=== PATIENT | male | born 1995 | race African-American/Black ===

== ENCOUNTER 2016-09-16 01:02 | Emergency (ER) | payer OTHER ==
[2016-09-16 01:09] VITALS: BP 131/73; PULSE 61; TEMP 98; BMI 21.9
[2016-09-16] MEDS ORDERED: ONDANSETRON 4 MG/2 ML VIAL IVPUSH ONE (01:22)
--- NOTE | 2016-09-16 01:22 | PDOC ---
[id number] No Limitations - History of Present Illness Timing/Duration: 24 hours Severity: mild Associated Symptoms: reports: headaches. denies: chest pain <Carlene Villegas - Last Filed: 09/16/16 02:37> <Silviano Salazar - Last Filed: 09/23/16 06:26> - General Chief Complaint: Headache Stated Complaint: HEADACHE, VOMITING Time Seen by Provider: 09/16/16 01:06 Past History - Travel Traveled outside of the country in the last 30 days: No Close contact w/someone who was outside of country & ill: No - Past Medical History Other medical history: denies - Psycho/Social/Smoking Cessation Hx Anxiety: No Suicidal Ideation: No Smoking History: Never smoked Have you smoked in the past 12 months: No Hx Alcohol Use: No Substance Use Type: None, Marijuana <Karley Villegasui - Last Filed: 09/16/16 02:37> <Silviano Salazar - Last Filed: 09/23/16 06:26> - Past Medical History Allergies/Adverse Reactions: Allergies Allergy/AdvReac Type Severity Reaction Status Date / Time No Known Allergies Allergy Verified 09/16/16 01:08 Home Medications: Ambulatory Orders Ondansetron HCl [Zofran] 4 mg PO TID #15 tablet 09/16/16 Review of Systems - Review of Systems Able to Perform ROS?: Yes Comments:: 09/16/16 01:42 CONSTITUTIONAL: Absent: fever, chills, diaphoresis, generalized weakness, malaise, loss of appetite HEENT: Absent: rhinorrhea, nasal congestion, throat pain, throat swelling, difficulty swallowing, mouth swelling, ear pain, eye pain, visual Changes CARDIOVASCULAR: Absent: chest pain, loss of consciousness, palpitations, irregular heart rate, peripheral edema RESPIRATORY: Absent: cough, shortness of breath, dyspnea with exertion, orthopnea, wheezing, stridor, hemoptysis GASTROINTESTINAL: Absent: abdominal pain, abdominal distension, nausea, vomiting, diarrhea, constipation, melena, hematochezia GENITOURINARY: Absent: dysuria, frequency, urgency, hesitancy, hematuria, flank pain, genital pain MUSCULOSKELETAL: Absent: myalgia, arthralgia, joint swelling SKIN: Absent: rash, itching, pallor HEMATOLOGIC/IMMUNOLOGIC: Absent: easy bleeding, easy bruising, lymphadenopathy, frequent infections ENDOCRINE: Absent: unexplained weight gain, unexplained weight loss, heat intolerance, cold intolerance NEUROLOGIC: +headache Absent: focal weakness or paresthesias, dizziness, unsteady gait, seizure, mental status changes, bladder or bowel incontinence PSYCHIATRIC: Absent: anxiety, depression, suicidal or homicidal ideation, hallucinations. Is the patient limited Swazi proficient: No <Karley Villegasui - Last Filed: 09/16/16 02:37> *Physical Exam - Vital Signs Last Vital Signs Temp Pulse Resp BP Pulse Ox 98.0 F 61 18 131/73 100 09/16/16 01:04 09/16/16 01:04 09/16/16 01:04 09/16/16 01:04 09/16/16 01:04 - Physical Exam Comments: 09/16/16 01:43 GENERAL: Well developed, well nourished. Awake and alert. No acute distress. HEENT: Normocephalic, atraumatic. PERRLA, EOMI. No conjunctival pallor. Sclera are non- icteric. Moist mucous membranes. Oropharynx is clear. NECK: Supple. Full ROM. No JVD. Carotid pulses 2+ and symmetric, without bruits. No thyromegaly. No lymphadenopathy. CARDIOVASCULAR: Regular rate and rhythm. No murmurs, rubs, or gallops. Distal pulses are 2+ and symmetric. PULMONARY: No evidence of respiratory distress. Lungs clear to auscultation bilaterally. No wheezing, rales or rhonchi. ABDOMINAL: Soft. Non-tender. Non-distended. No rebound or guarding. No organomegaly. Normoactive bowel sounds. MUSCULOSKELETAL Normal range of motion at all joints. No bony deformities or tenderness. No CVA tenderness. EXTREMITIES: No cyanosis. No clubbing. No edema. No calf tenderness. SKIN: Warm and dry. Normal capillary refill. No rashes. No jaundice. NEUROLOGICAL: Alert, awake, appropriate. Cranial nerves 2-12 intact. No deficits to light touch and temperature in face, upper extremities and lower extremities. No motor deficits in the in face, upper extremities and lower extremities. Normoreflexic in the upper and lower extremities. Normal speech. Toes are down- going bilaterally. Gait is normal without ataxia. PSYCHIATRIC: Cooperative. Good eye contact. Appropriate mood and affect. <BakariCarlene - Last Filed: 09/16/16 02:37> - Vital Signs Last Vital Signs Temp Pulse Resp BP Pulse Ox 98.0 F 61 18 131/73 100 09/16/16 01:04 09/16/16 01:04 09/16/16 01:04 09/16/16 01:04 09/16/16 01:04 <Silviano Salazar - Last Filed: 09/23/16 06:26> ED Treatment Course - LABORATORY CBC & Chemistry Diagram: 09/16/16 01:18 09/16/16 01:18 <Carlene Villegas - Last Filed: 09/16/16 02:37> - LABORATORY CBC & Chemistry Diagram: 09/16/16 01:18 09/16/16 01:18 - ADDITIONAL ORDERS Additional order review: 09/16/16 01:18 RBC 4.63 MCV 93.3 MCHC 35.0 RDW 12.5 MPV 9.0 Neutrophils % 74.6 Lymphocytes % 18.9 Monocytes % 5.5 Eosinophils % 0.4 Basophils % 0.6 - Medications Given in the ED: ED Medications Discontinued Medications Generic Name Dose Route Start Last Admin Trade Name Freq PRN Reason Stop Dose Admin Sodium Chloride 1,000 mls @ 1,000 mls/hr 09/16/16 01:23 09/16/16 01:30 Normal Saline - IV 09/16/16 02:22 1,000 mls/hr ASDIR STA Administration Ondansetron HCl 4 mg 09/16/16 01:22 09/16/16 01:30 Zofran Injection IVPUSH 09/16/16 01:23 4 mg ONCE ONE Administration <Silviano Salazar - Last Filed: 09/23/16 06:26> Medical Decision Making - Medical Decision Making 09/23/16 06:26 ED Attending note: I was available, involved in the case with the mid level provider as needed and in a limited capacity. 09/23/16 06:26 <Silviano Salazar - Last Filed: 09/23/16 06:26> *DC/Admit/Observation/Transfer <Carlene Villegas - Last Filed: 09/16/16 02:37> <Silviano Salazar - Last Filed: 09/23/16 06:26> Diagnosis at time of Disposition: Nausea & vomiting Qualifiers: Vomiting type: unspecified Vomiting Intractability: non-intractable Qualified Code(s): R11.2 - Nausea with vomiting, unspecified Head ache Qualifiers: Headache type: unspecified Headache chronicity pattern: unspecified pattern Intractability: not intractable Qualified Code(s): R51 - Headache - Discharge Dispostion Disposition: HOME Condition at time of disposition: Stable - Prescriptions Prescriptions: Ondansetron HCl [Zofran] 4 mg PO TID #15 tablet - Referrals Referrals: Donaldo Epps MD [Staff Physician] - - Patient Instructions Printed Discharge Instructions: Nausea and Vomiting-Adult, DI for Headache Additional Instructions: Rest Increase fluids Tylenol/motrin as needed for pain Follow up with your physician Return to the Er for severe/persistent/worsening symptoms Progress Note - Progress Note Progress Note: 20-year-old male presents to the emergency department complaining of nausea/ vomiting 2 days without abdominal pains, chest pain, shortness of breath, fever /chills, flank pains, urinary symptoms. Patient states he had 4 episodes of vomiting over the course of 48 hours that were nonbilious/nonbloody. His last episode of vomiting was 10 hours ago. Patient states he was able to eat and drink as of 6 hours ago without recurrent symptoms. 0203hrs: Patient reports he feels much better and wishes to be discharged. <Carlene Villegas - Last Filed: 09/16/16 02:37>
[2016-09-16] MEDS ORDERED: SODIUM CHLORIDE 1,000 ML IV STA (01:23)
[2016-09-16] MEDS ORDERED: ONDANSETRON 4 MG/2 ML VIAL ONE (01:26)
[2016-09-16 01:42] LABS: BASOPHIL 0.6 % (0-2.0); EOSINOPHIL 0.4 % (0-4.5); MCH 32.7 pg (25.7-33.7); MEAN CELL VOLUME 93.3 fl (80-96); NEUTROPHILS 74.6 % (42.8-82.8); PLATELET COUNT 203 K/MM3 (134-434); RDW 12.5 % (11.9-15.9)
[2016-09-16 02:08] LABS: ALBUMIN 4.5 g/dl (3.4-5.0); ALK PHOS 82 U/L (45-117); ANION GAP 7 (8-16); CALCIUM 9.3 mg/dL (8.5-10.1); CO2 32 mmol/L (21-32); GLUCOSE,RANDOM 89 mg/dL (74-106); SGOT/AST 22 U/L (15-37); SGPT/ALT 15 U/L (12-78); TOT PROT 7.7 g/dl (6.4-8.2)
== END 2016-09-16 03:00 | disposition home or self-care (01) ==
LOC: JER 01:02
PROC: 3E033GC Introduction of Other Therapeutic Substance into Peripheral Vein, Percutaneous Approach (ICD-10-PCS; principal; 2016-09-16)
DX: R51 Headache (principal); R11.2 Nausea with vomiting, unspecified
CPT/HCPCS: 36415; 80053; 85025; 99282-25

== ENCOUNTER 2018-03-17 21:53 | Emergency (ER) | payer OTHER ==
[2018-03-17 22:18] VITALS: BP 125/63; PULSE 70; TEMP 98.8; BMI 21.6
--- NOTE | 2018-03-17 22:39 | PDOC ---
History of Present Illness - General Chief Complaint: Cold Symptoms Stated Complaint: COLD SYMPTOMS Time Seen by Provider: 03/17/18 22:32 - History of Present Illness Initial Comments: 22-year-old male presents for evaluation of subjective fever chills body aches and cough 5 days. He has no comorbidities. 03/17/18 22:38 Past History - Past Medical History Allergies/Adverse Reactions: Allergies Allergy/AdvReac Type Severity Reaction Status Date / Time No Known Allergies Allergy Verified 09/16/16 01:08 Home Medications: Ambulatory Orders NK [No Known Home Medication] 03/17/18 COPD: No - Suicide/Smoking/Psychosocial Hx Smoking History: Never smoked Have you smoked in the past 12 months: No Information on smoking cessation initiated: No Hx Alcohol Use: No Drug/Substance Use Hx: No Substance Use Type: None Review of Systems - Review of Systems Constitutional: Yes: Chills, Fever, Malaise, Weakness Respiratory: Yes: Cough All Other Systems: Reviewed and Negative *Physical Exam - Vital Signs Last Vital Signs Temp Pulse Resp BP Pulse Ox 98.8 F 70 17 125/63 100 03/17/18 22:13 03/17/18 22:13 03/17/18 22:13 03/17/18 22:13 03/17/18 22:13 - Physical Exam Comments: HEAD: NC/AT EYES: Conjuntiva clear Ears: Canals and TM's normal NOSE: No d/c THROAT: Moist mucous membrances, oral pharanx clear, uvula midline NECK: Supple without adenopathy CARDIAC: S1 S2 LUNGS: CTA Full and Equal breath sounds ABDOMEN: Soft NT ND MS: Full ROM in all joints without edema NEUROLOGIC: No gross sensory or motor deficits, NVID SKIN: Normal color and temperature no lesions or rashes 03/17/18 22:38 Medical Decision Making - Medical Decision Making 03/17/18 22:39 Flu swab sent. *DC/Admit/Observation/Transfer Diagnosis at time of Disposition: Viral syndrome - Referrals - Patient Instructions - Post Discharge Activity
--- NOTE | 2018-03-17 23:08 | PDOC ---
*Physical Exam - Vital Signs Last Vital Signs Temp Pulse Resp BP Pulse Ox 98.8 F 70 17 125/63 100 03/17/18 22:13 03/17/18 22:13 03/17/18 22:13 03/17/18 22:13 03/17/18 22:13 *DC/Admit/Observation/Transfer Diagnosis at time of Disposition: Viral syndrome - Discharge Dispostion Disposition: HOME Condition at time of disposition: Stable Decision to Admit order: No - Referrals Referrals: Brian Albarado MD [Staff Physician] - - Patient Instructions Printed Discharge Instructions: DI for Common Cold Additional Instructions: You have an upper respiratory infection, or the common cold. Your strep testing was sent. If you do not receive a message, please call for the results. Please take Motrin 800 mg every 8 hours as needed for pain not to exceed 3000 mg a day. You may take the Robitussin with codeine every 8 hours as needed for cough. Do not drive after taking this medication as it may make you sleepy You may buy abreva over the counter for your cold sore Drink plenty of fluids. Cough drops and warm tea may help your symptoms as well. Please follow up with her primary care doctor this week. Return to the emergency department if you have difficulty breathing, shortness of breath, worsening pain, nausea, vomiting or if you have any changes in your symptoms. - Post Discharge Activity Forms/Work/School Notes: Back to Work
[2018-03-18] MEDS ORDERED: IBUPROFEN 100 MG/5 ML UNIT DOSE CUPS PO ONE (00:15)
[2018-03-18] MEDS ORDERED: IBUPROFEN 600 MG TABLET (FP) PO ONE (00:26)
== END 2018-03-18 02:00 | disposition home or self-care (01) ==
LOC: JER 21:53 → JERFT 21:53 → JER 03-18 02:00
DX: B34.9 Viral infection, unspecified (principal)
CPT/HCPCS: 87070; 87430; 87804; 99282-25

== ENCOUNTER 2018-08-07 08:43 | Emergency (ER) | payer OTHER ==
[2018-08-07 08:51] VITALS: BP 109/61; PULSE 88; TEMP 99; BMI 21.2
[2018-08-07] MEDS ORDERED: SODIUM CHLORIDE 1,000 ML IV STA (09:59)
[2018-08-07] MEDS ORDERED: DEXAMETHASONE LIQUID 0.5 MG/5 ML 240 ML BULK BOTTLE PO ONE (09:59)
--- NOTE | 2018-08-07 10:00 | PDOC ---
History of Present Illness - General Chief Complaint: Cold Symptoms Stated Complaint: CONGESTED/COLD SYMPTOMS Time Seen by Provider: 08/07/18 09:34 History Source: Patient Exam Limitations: No Limitations - History of Present Illness Initial Comments: 08/07/18 19:33 Patient is a 22-year-old male who presents to the ER for persistent cough, nasal congestion, earache for approximately 2 weeks. Patient states he was seen at [facility] yesterday for similar symptoms. He had a negative strep test there. He was told he had an upper respiratory infection was discharged home. He complains that he still has a cough the feels like he can't catch his breath. Denies fevers, chills, shortness of breath, difficulty breathing, chest pain, nausea, vomiting and diarrhea. Past History - Travel Traveled outside of the country in the last 30 days: No Close contact w/someone who was outside of country & ill: No - Past Medical History Allergies/Adverse Reactions: Allergies Allergy/AdvReac Type Severity Reaction Status Date / Time No Known Allergies Allergy Verified 08/07/18 08:51 Home Medications: Ambulatory Orders Albuterol Sulfate Inhaler - [Ventolin HFA Inhaler -] 1 - 2 inh PO Q4H #1 inhaler 08/07/18 Fluticasone Prop 0.05% Nasal [Flonase -] 1 - 2 spray NS DAILY #1 spray.pump 01/16 Methylprednisolone [Medrol Dose Suleman] 4 mg PO ASDIR #21 tablet 08/07/18 COPD: No - Suicide/Smoking/Psychosocial Hx Smoking History: Never smoked Have you smoked in the past 12 months: No Information on smoking cessation initiated: No Hx Alcohol Use: No Drug/Substance Use Hx: No Substance Use Type: None Review of Systems - Review of Systems Able to Perform ROS?: Yes Comments:: 08/07/18 09:56 CONSTITUTIONAL: Absent: fever, chills, diaphoresis, generalized weakness, malaise, loss of appetite HEENT: Present: congestion and rhinorrhea Absent: throat pain, throat swelling, difficulty swallowing, mouth swelling, ear pain, eye pain, visual Changes CARDIOVASCULAR: Absent: chest pain, loss of consciousness, palpitations, irregular heart rate, peripheral edema RESPIRATORY: Present: cough Absent: shortness of breath, dyspnea with exertion, orthopnea, wheezing, stridor, hemoptysis GASTROINTESTINAL: Absent: abdominal pain, abdominal distension, nausea, vomiting, diarrhea, constipation, melena, hematochezia GENITOURINARY: Absent: dysuria, frequency, urgency, hesitancy, hematuria, flank pain, genital pain MUSCULOSKELETAL: Absent: myalgia, arthralgia, joint swelling SKIN: Absent: rash, itching, pallor HEMATOLOGIC/IMMUNOLOGIC: Absent: easy bleeding, easy bruising, lymphadenopathy, frequent infections ENDOCRINE: Absent: unexplained weight gain, unexplained weight loss, heat intolerance, cold intolerance NEUROLOGIC: Absent: headache, focal weakness or paresthesias, dizziness, unsteady gait, seizure, mental status changes, bladder or bowel incontinence PSYCHIATRIC: Absent: anxiety, depression, suicidal or homicidal ideation, hallucinations. Is the patient limited Kittitian proficient: No *Physical Exam - Vital Signs Last Vital Signs Temp Pulse Resp BP Pulse Ox 99.0 F 88 16 109/61 100 08/07/18 08:48 08/07/18 08:48 08/07/18 08:48 08/07/18 08:48 08/07/18 08:48 - Physical Exam Comments: 08/07/18 09:58 GENERAL: Well developed, well nourished. Awake and alert. No acute distress. HEENT: Normocephalic, atraumatic. PERRLA, EOMI. No conjunctival pallor. Sclera are non- icteric. Moist mucous membranes. Oropharynx is clear. NECK: Supple. Full ROM. No JVD. Carotid pulses 2+ and symmetric, without bruits. No thyromegaly. No lymphadenopathy. CARDIOVASCULAR: Regular rate and rhythm. No murmurs, rubs, or gallops. Distal pulses are 2+ and symmetric. PULMONARY: No evidence of respiratory distress. Lungs clear to auscultation bilaterally. No wheezing, rales or rhonchi. ABDOMINAL: Soft. Non-tender. Non-distended. No rebound or guarding. No organomegaly. Normoactive bowel sounds. MUSCULOSKELETAL Normal range of motion at all joints. No bony deformities or tenderness. No CVA tenderness. EXTREMITIES: No cyanosis. No clubbing. No edema. No calf tenderness. SKIN: Warm and dry. Normal capillary refill. No rashes. No jaundice. NEUROLOGICAL: Alert, awake, appropriate. Cranial nerves 2-12 intact. No deficits to light touch and temperature in face, upper extremities and lower extremities. No motor deficits in the in face, upper extremities and lower extremities. Normoreflexic in the upper and lower extremities. Normal speech. Toes are down- going bilaterally. Gait is normal without ataxia. PSYCHIATRIC: Cooperative. Good eye contact. Appropriate mood and affect. Moderate Sedation - Procedure Monitoring Vital Signs: Procedure Monitoring Vital Signs Temperature 99.0 F 08/07/18 08:48 Pulse Rate 88 08/07/18 08:48 Respiratory Rate 16 08/07/18 08:48 Blood Pressure 109/61 08/07/18 08:48 O2 Sat by Pulse Oximetry (%) 100 08/07/18 08:48 Medical Decision Making - Medical Decision Making 08/07/18 19:34 Patient is a 20-year-old male who presents to the ER for cough, runny nose and earache for 2 weeks. On exam patient with clear lung sounds bilaterally. Ears show retracted TMs bilaterally. Patient given DuoNeb and steroids in the ER. Reports relief of symptoms. We'll give symptomatic treatment for URI. Discharge home I discussed the physical exam findings, ancillary test results and final diagnoses with the patient. I answered all of the patient's questions. The patient was satisfied with the care received and felt comfortable with the discharge plan and treatment plan. The Patient agrees to follow up with the primary care physician/specialist within 24-72 hours. Return precautions were given. *DC/Admit/Observation/Transfer Diagnosis at time of Disposition: URI (upper respiratory infection) Qualifiers: URI type: unspecified viral URI Qualified Code(s): J06.9 - Acute upper respiratory infection, unspecified - Discharge Dispostion Disposition: HOME Condition at time of disposition: Stable Decision to Admit order: No - Prescriptions Prescriptions: Albuterol Sulfate Inhaler - [Ventolin HFA Inhaler -] 1 - 2 inh PO Q4H #1 inhaler Fluticasone Prop 0.05% Nasal [Flonase -] 1 - 2 spray NS DAILY #1 spray.pump Methylprednisolone [Medrol Dose Suleman] 4 mg PO ASDIR #21 tablet - Referrals Referrals: Brian Albarado MD [Staff Physician] - - Patient Instructions Printed Discharge Instructions: DI for Viral Upper Respiratory Infection -- Adult Additional Instructions: You have an upper respiratory infection, or the common cold. Your strep testing was negative today. Please take the prescribed medication as directed Drink plenty of fluids. Cough drops and warm tea may help your symptoms as well. Please follow up with her primary care doctor this week. Return to the emergency department if you have difficulty breathing, shortness of breath, worsening pain, nausea, vomiting or if you have any changes in your symptoms. - Post Discharge Activity Forms/Work/School Notes: Back to Work
[2018-08-07] MEDS ORDERED: ALBUTEROL SO4 2.5/IPRATROPIUM 0.5 INH SOL 3 ML VIAL.NEB. NEB ONE ×2 (10:06)
[2018-08-07] MEDS ORDERED: DEXAMETHASONE SOD PHOSPHATE 10 MG/1 ML VIAL ONE (10:06)
== END 2018-08-07 10:29 | disposition home or self-care (01) ==
LOC: JERFT 08:43
DX: J06.9 Acute upper respiratory infection, unspecified (principal)
CPT/HCPCS: 99281-25

== ENCOUNTER 2021-10-17 09:29 | Emergency (ER) | payer OTHER ==
[2021-10-17 09:43] VITALS: BP 131/61; PULSE 71; TEMP 97.3; BMI 20.5
[2021-10-17] MEDS ORDERED: KETOROLAC TROMETHAMINE 30 MG/1 ML VIAL IM ONE (10:54)
[2021-10-17] MEDS ORDERED: KETOROLAC TROMETHAMINE 30 MG/1 ML VIAL ONE (11:15)
[2021-10-18 13:08] LABS: SARS-CoV-2 NAA Not Detected (Not Detected)
== END 2021-10-17 11:35 | disposition home or self-care (01) ==
LOC: JERFT 09:29
PROC: 3E0233Z Introduction of Anti-inflammatory into Muscle, Percutaneous Approach (ICD-10-PCS; principal; 2021-10-17)
DX: M79.10 Myalgia, unspecified site (principal)
CPT/HCPCS: 87804; 87807; 99284-25; C9803-CS; U0003; U0005

== ENCOUNTER 2022-08-06 22:39 | Emergency (ER) | payer OTHER ==
[2022-08-06 22:46] VITALS: BP 122/58; PULSE 77; RESP 18; TEMP 98.2; BMI 19.8
[2022-08-06] MEDS ORDERED: TETRACAINE 0.5% HCL 0.6ML DROPPER.BOTTLE OS ONE (23:14)
[2022-08-06] MEDS ORDERED: FLUORESCEIN NA 1 EA STRIP OS ONE (23:14)
[2022-08-06] MEDS ORDERED: FLUORESCEIN NA 1 EA STRIP ONE (23:16)
[2022-08-06] MEDS ORDERED: TETRACAINE 0.5% OPHTH SOLN 2 ML BOTTLE ONE (23:16)
[2022-08-06] MEDS ORDERED: ERYTHROMYCIN 0.5% OPHTHALMIC OINTMENT 3.5 GM TUBE OS STA (23:27)
[2022-08-06] MEDS ORDERED: DIPHTH,PERTUSS(ACELL),TET 0.5 ML DISP.SYRIN IM ONE ×2 (23:31→23:34)
[2022-08-06] MEDS ORDERED: ERYTHROMYCIN 0.5% OPHTHALMIC OINTMENT 3.5 GM TUBE ONE (23:34)
== END 2022-08-06 23:41 | disposition home or self-care (01) ==
LOC: JERFT 22:39
PROC: 3E0234Z Introduction of Serum, Toxoid and Vaccine into Muscle, Percutaneous Approach (ICD-10-PCS; principal; 2022-08-06)
DX: S05.02XA Injury of conjunctiva and corneal abrasion without foreign body, left eye, initial encounter (principal); W45.8XXA Other foreign body or object entering through skin, initial encounter
CPT/HCPCS: 90471; 90715; 99284-25